=== PATIENT | female | born 1995 | race Caucasian/White ===

== ENCOUNTER 2019-08-03 20:40 | Emergency (ER) | payer BC ==
[2019-08-03 21:06] LABS: BILIRUBIN,URINE NEGATIVE (NEGATIVE); GLUCOSE, URINE (UA) NEGATIVE (NEGATIVE); KETONES,URINE (UA) NEGATIVE (NEGATIVE); LEUKOCYTE ESTERASE, URINE NEGATIVE (NEGATIVE); NITRITE,URINE NEGATIVE (NEGATIVE); OCCULT BLOOD,URINE NEGATIVE (NEGATIVE); PH,URINE 6.5 PH (5.0-7.5); PROTEIN,URINE NEGATIVE (NEGATIVE); UROBILINOGEN,URINE 0.2 (NORMAL) E.U./dL (NORMAL)
[2019-08-03 21:09] LABS: CLARITY,URINE CLEAR (CLEAR); HCG UR QUAL NEGATIVE
--- NOTE | 2019-08-03 21:20 | ED Physician Documentation ---
History of Present Illness - Stated complaint Stated Complaint: ABD PX/BACK PX - Chief complaint Chief Complaint: Abd Pain - History obtained from History obtained from: Patient - History of Present Illness Timing: Other (2 months) - Additonal information Additional information: Patient is a 24-year-old female who presents to the emergency department with several complaints. The first is concern for pelvic inflammatory disease including gonorrhea and chlamydia. She has been treated for this in the past. She currently has 1 sexual partner but was sexually active with other partners and was not tested after that. She has had lower abdominal pain intermittently for the past 2 months as well as vaginal discharge. She is also concerned that she may have pinworms. She states she has had anal itching intermittently for 2 months. She also has had intermittent low back pain for the past 2 months. No numbness or tingling. Worse with movement and better with rest. No fevers. Denies any possibility of . Has an IUD in place. She does use IV heroin. Review of Systems Ten Systems: 10 systems reviewed and negative Constitutional: denies: Fever, Chills Nose: denies: Rhinorrhea / runny nose, Congestion Throat: denies: Sore throat Cardiac: denies: Chest pain / pressure, Palpitations Respiratory: denies: Cough GI: denies: Nausea, Vomiting, Diarrhea : denies: Dysuria, Frequency, Hesitancy, Incontinent, Now EGA Skin: denies: Rash Musculoskeletal: denies: Neck pain Neurologic: denies: Focal weakness, Numbness, Headache PD PAST MEDICAL HISTORY - Past Medical History Past Medical History: No - Past Surgical History Past Surgical History: No - Present Medications Home Medications: Ambulatory Orders Medication Instructions Recorded Confirmed No Known Home Medications 08/03/19 08/03/19 - Allergies Allergies/Adverse Reactions: Allergies Allergy/AdvReac Type Severity Reaction Status Date / Time No Known Drug Allergies Allergy Verified 08/03/19 20:52 - Living Situation Living Situation: reports: With family Living Arrangement: reports: At home - Social History Does the pt have substance abuse?: Yes Substance Use and Type: Heroin - Family History Family history: reports: Non contributory PD ED PE NORMAL - Vitals Vital signs reviewed: Yes - General General: Alert and oriented X 3, No acute distress - HEENT HEENT: Moist mucous membranes - Neck Neck: Supple, no meningeal sign - Cardiac Cardiac: RRR, Strong equal pulses - Respiratory Respiratory: No respiratory distress, Clear bilaterally - Abdomen Abdomen: Soft, Non tender, Non distended - Female Female : [employer] Operator present (CARLOS Watt), Other (Mild irritation to the cervix. Clear discharge. IUD string visible. Mild cervical motion tenderness. Otherwise normal exam. Normal external anal exam as well. No visible hemorrhoids. No evidence of worms.) - Derm Derm: Warm and dry - Extremities Extremities: No deformity - Neuro Neuro: Alert and oriented X 3 - Psych Psych: Normal mood, Normal affect Results - Vitals Vitals: Vital Signs - 24 hr 08/03/19 22:39 Temperature 36.9 C Heart Rate 77 Respiratory 18 Rate Blood Pressure 120/71 O2 Saturation 100 Oxygen O2 Source Room air - Labs Labs: Laboratory Tests 08/03/19 08/03/19 08/03/19 20:55 20:55 21:13 WBC RBC Hgb Hct MCV MCH MCHC RDW Plt Count MPV Neut # (Auto) Lymph # (Auto) [place] # (Auto) Eos # (Auto) Baso # (Auto) Absolute Nucleated RBC Nucleated RBC % Manual Slide Review WBC Morphology Platelet Estimate Platelet Morphology RBC Morph Micro Appear Sodium Potassium Chloride Carbon Dioxide Anion Gap BUN Creatinine Estimated GFR (MDRD) Glucose Calcium Total Bilirubin AST ALT Alkaline Phosphatase Total Protein Albumin Globulin Albumin/Globulin Ratio Lipase Urine Color YELLOW Urine Clarity CLEAR Urine pH 6.5 Ur Specific [place] 1.020 1.020 Urine Protein NEGATIVE Urine Glucose (UA) NEGATIVE Urine Ketones NEGATIVE Urine Occult Blood NEGATIVE Urine Nitrite NEGATIVE Urine Bilirubin NEGATIVE Urine Urobilinogen 0.2 (NORMAL) Ur Leukocyte Esterase NEGATIVE Ur Microscopic Review NOT INDICATED Urine Culture Comments NOT INDICATED Urine HCG, Qual NEGATIVE C. glabrata (PCR) C. krusei (PCR) Becka species DNA Chlam trachomat DNA PCR NEGATIVE N.gonorrhoeae DNA (PCR) NEGATIVE T. vaginalis (PCR) NEGATIVE Bact Vaginosis (PCR) 08/03/19 08/03/19 08/03/19 21:13 21:40 21:40 WBC 7.5 RBC 4.23 Hgb 12.8 Hct 41.0 MCV 96.9 MCH 30.3 MCHC 31.2 L RDW 12.2 Plt Count 182 MPV 10.2 Neut # (Auto) 4.2 Lymph # (Auto) 2.5 [place] # (Auto) 0.6 Eos # (Auto) 0.2 Baso # (Auto) 0.1 Absolute Nucleated RBC 0.00 Nucleated RBC % 0.0 Manual Slide Review Indicated WBC Morphology NORMAL APPEARANCE Platelet Estimate NORMAL (130-450,000) Platelet Morphology PLATELET CLUMPING RBC Morph Micro Appear NORMAL APPEARANCE Sodium 137 Potassium 3.2 L Chloride 104 Carbon Dioxide 20 L Anion Gap 13.0 BUN 12 Creatinine 0.6 Estimated GFR (MDRD) 124 Glucose 85 Calcium 8.8 Total Bilirubin 0.3 AST 17 ALT 12 Alkaline Phosphatase 53 Total Protein 7.7 Albumin 3.8 Globulin 3.9 Albumin/Globulin Ratio 1.0 Lipase 25 Urine Color Urine Clarity Urine pH Ur Specific [place] Urine Protein Urine Glucose (UA) Urine Ketones Urine Occult Blood Urine Nitrite Urine Bilirubin Urine Urobilinogen Ur Leukocyte Esterase Ur Microscopic Review Urine Culture Comments Urine HCG, Qual C. glabrata (PCR) NEGATIVE C. krusei (PCR) NEGATIVE Becka species DNA NEGATIVE Chlam trachomat DNA PCR N.gonorrhoeae DNA (PCR) T. vaginalis (PCR) NEGATIVE Bact Vaginosis (PCR) NEGATIVE PD MEDICAL DECISION MAKING - ED course Complexity details: reviewed results, re-evaluated patient, considered differential, d/w patient Departure - Departure Disposition: 01 Home, Self Care Clinical Impression: PID (acute pelvic inflammatory disease) Condition: Good Instructions: ED PID Follow-Up: [facility] [place] [Provider Group] [facility] [Provider Group] Comments: follow up with your doctor for further care. Return if you worsen. Discharge Date/Time: 08/04/19 00:45
[2019-08-03 21:45] LABS: BASOPHILS # (AUTO) 0.1 10^3/uL (0.0-0.1); BASOPHILS % (AUTO) 0.7 %; EOSINOPHILS # (AUTO) 0.2 10^3/uL (0.0-0.7); EOSINOPHILS % (AUTO) 2.9 %; HGB - HEMOGLOBIN 12.8 g/dL (12.0-16.0); LYMPHOCYTES # (AUTO) 2.5 10^3/uL (1.5-3.5); LYMPHOCYTES % (AUTO) 32.9 %; MEAN CORPUSCULAR HEMOGLOBIN 30.3 pg (27.0-31.0); MEAN CORPUSCULAR HGB CONC 31.2 g/dL (32.0-36.0); MEAN CORPUSCULAR VOLUME 96.9 fL (81.0-99.0); MEAN PLATELET VOLUME 10.2 fL (7.9-10.8); MONOCYTES # (AUTO) 0.6 10^3/uL (0.0-1.0); MONOCYTES % (AUTO) 7.7 %; NEUTROPHILS # (AUTO) 4.2 10^3/uL (1.5-6.6); NEUTROPHILS % (AUTO) 55.4 %; PLT - PLATELET COUNT 182 10^3/uL (130-450); RED BLOOD COUNT 4.23 10^6/uL (4.20-5.40); RED CELL DISTRIBUTION WIDTH 12.2 % (12.0-15.0); WHITE BLOOD COUNT 7.5 x10^3/uL (4.8-10.8)
[2019-08-03] MEDS ORDERED: cefTRIAXone 1 GM VIAL IM STA (21:55)
[2019-08-03] MEDS ORDERED: LIDOCAINE 1% 2 ML VIAL MC ONE (21:55)
[2019-08-03] MEDS ORDERED: AZITHROMYCIN 250 MG TABLET PO STA (21:55)
[2019-08-03 21:58] LABS: PLATELET ESTIMATE, MANUAL NORMAL (130-450,000) (NORMAL); PLATELET MORPHOLOGY PLATELET CLUMPING (NORMAL); RBC MORPHOLOGY (MULTIPLE) NORMAL APPEARANCE (NORMAL)
[2019-08-03 22:01] LABS: CALCIUM 8.8 mg/dL (8.5-10.3)
[2019-08-03 22:40] VITALS: BP 120/71
[2019-08-03 23:39] LABS: ALBUMIN 3.8 g/dL (3.2-5.5); BILIRUBIN,TOTAL 0.3 mg/dL (0.2-1.0); CREATININE 0.6 mg/dL (0.4-1.0); TOTAL PROTEIN 7.7 g/dL (6.7-8.2)
[2019-08-04 00:33] LABS: TRICHOMONAS VAGINALIS DNA NEGATIVE (NEGATIVE)
[2019-08-04 00:45] LABS: CANDIDA GROUP DNA NEGATIVE (NEGATIVE); CANDIDA KRUSEI DNA NEGATIVE (NEGATIVE); TRICHOMONAS VAGINALIS DNA NEGATIVE (NEGATIVE)
== END 2019-08-04 00:45 | disposition home or self-care (01) ==
LOC: ED 20:40
DX: N73.9 Female pelvic inflammatory disease, unspecified (principal); Z97.5 Presence of (intrauterine) contraceptive device
CPT/HCPCS: 36415; 80053; 81003; 81025; 83690; 85025; 87481; 87491; 87591; 87661; 87801; 96372; 99283; 99284; A9270; 81001; 87086; 87177; 87209

== ENCOUNTER 2020-11-20 08:00 | Outpatient (CLI) | payer BC | END 2020-11-20 23:59 | disposition home or self-care (01) | LOC: LAB.S 08:00 | PROVIDERS: ATTEND Emergency Medicine | DX: L03.113 Cellulitis of right upper limb (principal); L02.413 Cutaneous abscess of right upper limb | CPT/HCPCS: 87070; 87077; 87181; 87205 ==